=== PATIENT | female | born 1965 | race Caucasian/White ===

== ENCOUNTER 2021-08-31 13:08 | Inpatient (IN) | payer OTHER ==
[~2021-08-31] VITALS: Ht 165.1 cm; Wt 148.0 kg
[~2021-08-31 13:08] MED LIST: ALEVE220 MG PO; ALLOPURINOL 10100 MG PO; ASPIRIN81 MG PO; DIOVAN160 MG PO; LASIX20 MG PO; PHENERGAN25 M1 PO; TOPROL XL100 MG PO; TYLENOL #31 EACH PO; TYLENOL500 MG PO; WELLBUTRIN XL300 MG PO; ZANTAC150 MG PO; ZYRTEC10 MG PO
[2021-08-31 14:43] LABS: BASOPHIL 0 % (0-2); EOSINOPHIL 0.2 % (0-5); HCT 39.7 % (37.0-47.0); HGB 12.9 g/dl (12.5-16.0); LYMPHOCYTE 12.1 % (15-48); MCH 30.9 pg (25.0-31.0); MCHC 32.5 g/dL (32.0-36.0); MCV 95.2 fL (78.0-100.0); MPV 9.8 fL (6.0-9.5); NEUTROPHIL 80.3 % (41-80); NRBC 0; PLT 151 K/uL (150-400); RBC 4.17 M/uL (4.20-5.40); RDW 13.5 % (11.5-14.0); WBC 5.7 K/uL (4.0-10.5)
[2021-08-31 15:09] LABS: BUN/CREAT RATIO (CALC) 15.2 RATIO; CREATININE 0.92 mg/dL (0.51-0.95); GLOBULIN (CALCULATION) 4.4 g/dL; POTASSIUM 4.1 mmol/L (3.5-5.1); TOTAL PROTEIN 7.4 g/dL (6.4-8.2)
[2021-08-31 15:17] LABS: LACTIC ACID 1.5 mmol/L (0.4-1.9)
[2021-08-31] MEDS ORDERED: ELIQUIS5 MG PO (19:53)
[2021-08-31] MEDS ORDERED: ZOLOFT100 MG PO (19:54)
[2021-08-31] MEDS ORDERED: OSTEO BI-FLEX1 EAC1 PO (19:55)
[2021-08-31] MEDS ORDERED: SYNTHROID25 MCG PO (19:56)
[2021-09-01 06:01] LABS: BASOPHIL 0 % (0-2); EOSINOPHIL 0 % (0-5); HCT 38.9 % (37.0-47.0); HGB 12.6 g/dl (12.5-16.0); LYMPHOCYTE 12.4 % (15-48); MCH 30.6 pg (25.0-31.0); MCHC 32.4 g/dL (32.0-36.0); MCV 94.4 fL (78.0-100.0); MONOCYTE 7.7 % (0-12); NEUTROPHIL 79.7 % (41-80); NRBC 0; PLT 169 K/uL (150-400); RBC 4.12 M/uL (4.20-5.40); RDW 13.2 % (11.5-14.0); WBC 4.5 K/uL (4.0-10.5)
[2021-09-01 08:51] LABS: ALBUMIN 2.9 g/dL (3.4-5.0); ALKALINE PHOSHATASE 72 U/L (46-116); ALT 36 U/L (14-59); AST 51 U/L (15-37); BILIRUBIN - TOTAL 0.7 mg/dL (0.2-1.0); BUN 17 mg/dL (7-18); BUN/CREAT RATIO (CALC) 18.5 RATIO; C-REACTIVE PROTEIN >18.00 mg/dL (<=0.90); CHLORIDE 104 mmol/L (98-107); CO2 (BICARBONATE) 22 mmol/L (21-32); CREATININE 0.92 mg/dL (0.51-0.95); GLOBULIN (CALCULATION) 4.3 g/dL; GLUCOSE 108 mg/dL (74-106); LDH 480 U/L (81-234); MAGNESIUM 2.2 mg/dL (1.8-2.4); PHOSPHORUS 3.2 mg/dL (2.6-4.7); POTASSIUM 4.7 mmol/L (3.5-5.1); TOTAL PROTEIN 7.2 g/dL (6.4-8.2)
--- NOTE | 2021-09-01 13:29 | NUR ---
09/01/21 Per telephone conversation with Mr. Emerson. Ms. Emerson lives at home with her spouse. She was independent prior to admission. Ms. Emerson has a C-PAP. Mr. Emerson chose [facility] for any 02 needs.
--- NOTE | 2021-09-02 21:03 | NUR ---
HANDOFF REPORT GIVEN TO TRE CALDWELL
[2021-09-03 06:08] LABS: BASOPHIL 0.1 % (0-2); EOSINOPHIL 0 % (0-5); HCT 39.5 % (37.0-47.0); HGB 12.7 g/dl (12.5-16.0); LYMPHOCYTE 5.8 % (15-48); MCH 30.5 pg (25.0-31.0); MCHC 32.2 g/dL (32.0-36.0); MONOCYTE 4.9 % (0-12); MPV 9.4 fL (6.0-9.5); NEUTROPHIL 88.8 % (41-80); NRBC 0; PLT 245 K/uL (150-400); RBC 4.16 M/uL (4.20-5.40); WBC 12.2 K/uL (4.0-10.5)
[2021-09-03 06:18] LABS: BUN/CREAT RATIO (CALC) 26.1 RATIO; C-REACTIVE PROTEIN 13.8 mg/dL (<=0.90); CREATININE 0.92 mg/dL (0.51-0.95); POTASSIUM 4.5 mmol/L (3.5-5.1)
--- NOTE | 2021-09-04 10:38 | NUR ---
PT PLACED BACK ON BIPAP WHILE RESTING. SAT IS 91%
[2021-09-05 04:07] LABS: BASOPHIL 0.2 % (0-2); EOSINOPHIL 0 % (0-5); HCT 40.7 % (37.0-47.0); HGB 13.1 g/dl (12.5-16.0); LYMPHOCYTE 6.4 % (15-48); MCH 30.4 pg (25.0-31.0); MCHC 32.2 g/dL (32.0-36.0); MCV 94.4 fL (78.0-100.0); MPV 9.8 fL (6.0-9.5); NEUTROPHIL 87.6 % (41-80); NRBC 0; PLT 297 K/uL (150-400); RBC 4.31 M/uL (4.20-5.40); RDW 12.8 % (11.5-14.0); WBC 11.3 K/uL (4.0-10.5)
[2021-09-05 04:47] LABS: ALBUMIN 2.8 g/dL (3.4-5.0); BILIRUBIN - TOTAL 0.9 mg/dL (0.2-1.0); BUN/CREAT RATIO (CALC) 32.8 RATIO; C-REACTIVE PROTEIN 15.6 mg/dL (<=0.90); CREATININE 1.16 mg/dL (0.51-0.95); POTASSIUM 4.2 mmol/L (3.5-5.1); TOTAL PROTEIN 7.8 g/dL (6.4-8.2)
[2021-09-06 15:47] LABS: BILIRUBIN NEGATIVE (NEGATIVE); BLOOD 2+ Ery/uL (NEGATIVE); CLARITY CLEAR (CLEAR); COLOR YELLOW (YELLOW); GLUCOSE (U) NORMAL (NORMAL); LEUKOCYTES 1+ Leu/uL (NEGATIVE); NITRITE POSITIVE (NEGATIVE); PROTEIN TRACE (LOW) mg/dL (NEGATIVE); SPECIFIC GRAVITY 1.015 (1.001-1.030); UROBILINOGEN 0.2 mg/dL (0.2-1.0)
[2021-09-06 15:54] LABS: BACTERIA 4+; TRIPLE PHOSPHATE CRYSTALS LARGE
[2021-09-07 06:34] LABS: BASOPHIL 0.1 % (0-2); EOSINOPHIL 0.2 % (0-5); HCT 40.2 % (37.0-47.0); HGB 12.9 g/dl (12.5-16.0); LYMPHOCYTE 4.9 % (15-48); MCH 30.7 pg (25.0-31.0); MCHC 32.1 g/dL (32.0-36.0); MCV 95.7 fL (78.0-100.0); MONOCYTE 6.4 % (0-12); NEUTROPHIL 87.6 % (41-80); NRBC 0; PLT 351 K/uL (150-400); RDW 12.6 % (11.5-14.0); WBC 11.2 K/uL (4.0-10.5)
[2021-09-07 06:58] LABS: BUN/CREAT RATIO (CALC) 41.6 RATIO; C-REACTIVE PROTEIN 3.5 mg/dL (<=0.90); CREATININE 1.01 mg/dL (0.51-0.95); POTASSIUM 4.2 mmol/L (3.5-5.1)
[2021-09-09 06:22] LABS: BASOPHIL 0.1 % (0-2); EOSINOPHIL 0.3 % (0-5); HCT 39.7 % (37.0-47.0); HGB 12.7 g/dl (12.5-16.0); LYMPHOCYTE 4.7 % (15-48); MCH 30.5 pg (25.0-31.0); MCV 95.4 fL (78.0-100.0); MONOCYTE 5.1 % (0-12); MPV 10.1 fL (6.0-9.5); NEUTROPHIL 88.6 % (41-80); NRBC 0; PLT 359 K/uL (150-400); RBC 4.16 M/uL (4.20-5.40); RDW 12.6 % (11.5-14.0); WBC 10.5 K/uL (4.0-10.5)
[2021-09-09 06:48] LABS: BUN/CREAT RATIO (CALC) 35.6 RATIO; CREATININE 0.87 mg/dL (0.51-0.95); POTASSIUM 3.9 mmol/L (3.5-5.1)
[2021-09-10 06:06] LABS: BASOPHIL 0.1 % (0-2); EOSINOPHIL 0.2 % (0-5); HCT 39.6 % (37.0-47.0); HGB 12.7 g/dl (12.5-16.0); LYMPHOCYTE 4.9 % (15-48); MCH 30.4 pg (25.0-31.0); MCHC 32.1 g/dL (32.0-36.0); MCV 94.7 fL (78.0-100.0); MPV 10.1 fL (6.0-9.5); NEUTROPHIL 86.5 % (41-80); NRBC 0; PLT 377 K/uL (150-400); RBC 4.18 M/uL (4.20-5.40); RDW 12.6 % (11.5-14.0); WBC 14.6 K/uL (4.0-10.5)
[2021-09-10 06:44] LABS: BUN/CREAT RATIO (CALC) 35.6 RATIO; CREATININE 0.9 mg/dL (0.51-0.95); POTASSIUM 4.5 mmol/L (3.5-5.1)
--- NOTE | 2021-09-11 15:19 | NUR ---
09/11/21 A referral was made to [facility] for 02 at 4 L oximizer.
[2021-09-12 06:07] LABS: BUN/CREAT RATIO (CALC) 27.2 RATIO; C-REACTIVE PROTEIN 3.5 mg/dL (<=0.90); CREATININE 0.92 mg/dL (0.51-0.95); POTASSIUM 4.2 mmol/L (3.5-5.1)
[2021-09-12 06:14] LABS: BASOPHIL 0.2 % (0-2); EOSINOPHIL 1.2 % (0-5); HCT 41.2 % (37.0-47.0); HGB 12.6 g/dl (12.5-16.0); LYMPHOCYTE 9.9 % (15-48); MCH 30.1 pg (25.0-31.0); MCHC 30.6 g/dL (32.0-36.0); MCV 98.3 fL (78.0-100.0); MONOCYTE 8.9 % (0-12); MPV 9.9 fL (6.0-9.5); NEUTROPHIL 78.7 % (41-80); NRBC 0; PLT 400 K/uL (150-400); RBC 4.19 M/uL (4.20-5.40); WBC 12.2 K/uL (4.0-10.5)
== END 2021-09-12 12:26 | disposition home or self-care (01) | DRG 177 ==
LOC: FER 13:08 → FTCU 17:49
PROVIDERS: Allergy & Immunology Allergy; Emergency Medicine; Family Medicine; Nurse Practitioner; ADMIT Internal Medicine
PROC: XW033E5 Introduction of Remdesivir Anti-infective into Peripheral Vein, Percutaneous Approach, New Technology Group 5 (ICD-10-PCS; principal; 2021-08-31)
PROC: 8E0ZXY6 Isolation (ICD-10-PCS; 2021-08-31)
PROC: XW0DXM6 Introduction of Baricitinib into Mouth and Pharynx, External Approach, New Technology Group 6 (ICD-10-PCS; 2021-09-01)
PROC: 5A09357 Assistance with Respiratory Ventilation, Less than 24 Consecutive Hours, Continuous Positive Airway Pressure (ICD-10-PCS; 2021-09-01)
PROC: 5A09357 Assistance with Respiratory Ventilation, Less than 24 Consecutive Hours, Continuous Positive Airway Pressure (ICD-10-PCS; 2021-09-02)
PROC: 5A0935A Assistance with Respiratory Ventilation, Less than 24 Consecutive Hours, High Flow/Velocity Cannula (ICD-10-PCS; 2021-09-02)
PROC: 5A09357 Assistance with Respiratory Ventilation, Less than 24 Consecutive Hours, Continuous Positive Airway Pressure (ICD-10-PCS; 2021-09-03)
PROC: 5A0935A Assistance with Respiratory Ventilation, Less than 24 Consecutive Hours, High Flow/Velocity Cannula (ICD-10-PCS; 2021-09-03)
PROC: 5A09357 Assistance with Respiratory Ventilation, Less than 24 Consecutive Hours, Continuous Positive Airway Pressure (ICD-10-PCS; 2021-09-04)
PROC: 5A0935A Assistance with Respiratory Ventilation, Less than 24 Consecutive Hours, High Flow/Velocity Cannula (ICD-10-PCS; 2021-09-04)
PROC: 5A0955A Assistance with Respiratory Ventilation, Greater than 96 Consecutive Hours, High Flow/Velocity Cannula (ICD-10-PCS; 2021-09-05)
PROC: 5A09357 Assistance with Respiratory Ventilation, Less than 24 Consecutive Hours, Continuous Positive Airway Pressure (ICD-10-PCS; 2021-09-05)
DX: U07.1 COVID-19 (principal); J12.82 Pneumonia due to coronavirus disease 2019; J96.01 Acute respiratory failure with hypoxia; E66.2 Morbid (severe) obesity with alveolar hypoventilation; N30.00 Acute cystitis without hematuria; Z68.44 Body mass index [BMI] 60.0-69.9, adult; B96.89 Other specified bacterial agents as the cause of diseases classified elsewhere; I12.9 Hypertensive chronic kidney disease with stage 1 through stage 4 chronic kidney disease, or unspecified chronic kidney disease; N18.2 Chronic kidney disease, stage 2 (mild); I48.91 Unspecified atrial fibrillation; E03.9 Hypothyroidism, unspecified; F41.9 Anxiety disorder, unspecified; F32.A Depression, unspecified; Z79.01 Long term (current) use of anticoagulants; Z79.899 Other long term (current) drug therapy; Z90.710 Acquired absence of both cervix and uterus; Z90.49 Acquired absence of other specified parts of digestive tract; Z99.81 Dependence on supplemental oxygen
CPT/HCPCS: 36415; 36600; 71045; 71275; 80048; 80053; 81001; 82728; 82803; 83036; 83605; 83615; 83735; 83880; 84100; 84145; 85025; 85379; 86140; 87040; 87076; 87088; 87186; 93005; 94010; 94640; 94660; 94760; 94762; C9399; J0696; J1100; J2405; J3360; J7050; J8540; Q9967